=== PATIENT | male | born 1965 | race Caucasian/White ===

== ENCOUNTER 2018-08-06 07:55 | Day surgery (SDC) | payer BC ==
[~2018-08-06] VITALS: Ht 172.7 cm; Wt 84.1 kg
[2018-08-06 08:17] VITALS: BP 117/92; PULSE 76; TEMP 98
[2018-08-06] MEDS ORDERED: LEXAPRO 10MG10 MG PO (08:20)
[2018-08-06 09:40] VITALS: BP 122/87; PULSE 73; TEMP 98.4
[2018-08-06 09:55] VITALS: BP 118/91; PULSE 73
[2018-08-06 10:10] VITALS: BP 123/89; PULSE 69
== END 2018-08-06 10:25 | disposition home or self-care (01) ==
LOC: SDCO 07:55
DX: Z12.11 Encounter for screening for malignant neoplasm of colon (principal)
CPT/HCPCS: J2250; J3010; J7030